=== PATIENT | male | born 1975 | race Caucasian/White ===

== ENCOUNTER 2022-01-11 09:10 | Outpatient (CLI) | payer BC, SELFPAY ==
--- NOTE | ~2022-01-11 | NM_ITS ---
EXAMINATION: NM mark stress w perfusion DATE: 01/11/2022 11:09 INDICATION: Lumbago with sciatica TECHNIQUE: Rest images were obtained following intravenous administration of 9.44 mCi Tc99m tetrofosm in (Myoview). The patient was infused intravenously with Lexiscan (Regadenoson). Then, 30.0 mCi Tc99m tetrofosmin (Myoview) was administered intravenously, and stress images were obtained in supine posi tion. Additional post stress images were obtained in the prone position. Data was reconstructed into short axis and horizontal and vertical long axis SPECT images. Gated SPECT images were also obtained. COMPARISON: None. FINDINGS: Small mild perfusion defect at the apical segment on the gated stress images, slightly larg e extending into the anteroapical and apical lateral segments on the nongated stress images and more prominent and slightly more extensive occluding extending to the mid anterior segments on the rest im ages. There is also significant worsening in this region on the prone imaging. Although could not exc lude a small mild infarct at the apical segment, the more severe and extensive decreased perfusion on rest and post stress imaging suggests this more likely artifactual. No reversible ischemia. There is normal left ventricular chamber size, wall motion and ejection fraction. Left ventricular ejection fraction measures 65%. IMPRESSION: 1. Small mild perfusion defect at the apex on the gated stress images and could not absolutely exclud e infarct however this is more likely artifactual given the more prominent and extensive decreased pe rfusion surrounding the apical segments seen on the rest but not the stress images.. 2. Left ventricular ejection fraction measuring 65%. Reviewed, dictated and finalized at location A. IMPRESSION: 1. Small mild perfusion defect at the apex on the gated stress images and could not absolutely exclude infarct however this is more likely artifactual given t he more prominent and extensive decreased perfusion surrounding the apical segm ents seen on the rest but not the stress images.. 2. Left ventricular ejection fraction measuring 65%.
--- NOTE | 2022-01-11 09:21 | EST_ITS ---
Patient Info Name: Josesito Mason Age: 46 years : 1975 Gender: Male Ht: 78 in Wt: 310 lbs BSA: 2.82 m2 HR: 78 bpm BP: 135 / 81 mmHg Heart Rhythm: Sinus Rhythm Exam Date: 01/11/2022 10:07 AM Exam Location: [facility] Stress Patient Status: Outpatient Admit Date: 01/11/2022 Staff Ordering Physician: Emilio Pappas PA-C Automotive Accessory Installer: Lindsey Escoto CT Attending Provider: Emilio Pappas PA-C Exercise Technologist: Lindsey Escoto CT Exercise Physician: Josep Bull DO Exam Type: CA stress mark w NM Study Info Indications Z82.49 - Family history of ischemic heart disease and other diseases of the circulatory system A regadenoson stress test was performed. Summary 1. 1. Negative lexiscan stress test for ischemic ST changes by ECG criteria. 2. 2. Stable hemodynamics throughout the test. 3. 3. Nuclear scan to follow and will be reported separately. Please correlate with it. 4. 4. Patient informed of the above results. Protocol: Lexiscan Stress ECG Details Stage: REST Duration (min): 1 min : 21 sec Hernandez: --- Speed (mph): 0.0 Grade (%): 0 HR (bpm): 67 SBP (mmHg): 135 DBP (mmHg): 81 METS: --- Stage: REST Duration (min): 15 min : 30 sec Hernandez: --- Speed (mph): 0.0 Grade (%): 0 HR (bpm): 66 SBP (mmHg): 135 DBP (mmHg): 81 METS: --- Stage: STAGE 1 Duration (min): 1 min : 0 sec Hernandez: --- Speed (mph): 0.0 Grade (%): 0 HR (bpm): 87 SBP (mmHg): 115 DBP (mmHg): 63 METS: --- Stage: RECOVERY Duration (min): 1 min : 0 sec Hernandez: --- Speed (mph): 0.0 Grade (%): 0 HR (bpm): 86 SBP (mmHg): 115 DBP (mmHg): 63 METS: --- Stage: RECOVERY Duration (min): 2 min : 0 sec Hernandez: --- Speed (mph): 0.0 Grade (%): 0 HR (bpm): 83 SBP (mmHg): 115 DBP (mmHg): 63 METS: --- Stage: RECOVERY Duration (min): 2 min : 53 sec Hernanedz: --- Speed (mph): 0.0 Grade (%): 0 HR (bpm): 82 SBP (mmHg): 149 DBP (mmHg): 66 METS: --- Rest HR: 66 bpm Peak HR: 92 bpm Rest Sys BP: 135 mmHg Peak Sys BP: 149 mmHg Max Pred HR: 174 bpm % Max Pred HR: 53 % Target HR: 148 bpm Max RPP: 13,708 bpm*mmHg Jordan Score: -2 Termination Reason: Completed protocol Cardiac Symptoms: Shortness of breath Max ST Seg Deviation: 1 mm Total Time: 1 min : 0 sec Rest Maya BP: 81 mmHg Peak Maya BP: 66 mmHg Angina Score: None Total Dose: 0.4 mg Total METS: 1.0 Resting ECG Sinus rhythm, IRBBB, LAFB. Stress ECG No ST changes. Arrhythmias None. Report Signatures
== END 2022-01-11 09:11 | disposition home or self-care (01) ==
PROVIDERS: PCP Physician Assistant; Visit Provider Physician Assistant
DX: M54.42 Lumbago with sciatica, left side (principal)
CPT/HCPCS: 78452; 93017; A9502; J2785

== ENCOUNTER 2022-02-27 09:13 | Outpatient (CLI) | payer BC, SELFPAY ==
--- NOTE | ~2022-02-27 | XR_ITS ---
XR knee RT min 4V 02/27/2022 09:47 Indication: Right knee pain Procedure: 4 views right knee Comparison: No prior studies for comparison. Findings: There is mild osteoarthritis of the right knee. No fracture, subluxation or dislocation. No significant joint effusion. Impression: 1: Mild osteoarthritis right knee. Reviewed, dictated and finalized at location B. Impression: 1: Mild osteoarthritis right knee.
== END 2022-02-27 09:14 | disposition home or self-care (01) ==
LOC: CHSIMG 09:16
PROVIDERS: PCP Physician Assistant; Visit Provider Orthopaedic Surgery
DX: M25.561 Pain in right knee (principal)
CPT/HCPCS: 73564

== ENCOUNTER → 2022-03-10 11:12 | Outpatient (CLI) | payer BC, SELFPAY ==
--- NOTE | ~2022-03-10 | MR_ITS ---
EXAMINATION: MR knee RT wo con DATE: 03/10/2022 12:14 INDICATION: Chronic medial right knee pain TECHNIQUE: Magnetic resonance imaging (MRI) of the right knee was performed without intravenous contr ast. Sequences included coronal PD-weighted FSE, coronal PD-weighted FS FSE, sagittal T2-weighted FS E, sagittal PD-weighted FS FSE and axial PD weighted fat saturated FSE. COMPARISON: Chest dated 02/27/2022 FINDINGS: Medial compartment: Medial meniscus is normal. Deep chondral ulceration with chondral surface regularity and greater than 50% loss of thickness at the central weightbearing medial femoral condyle. Mild partial-thickness ch ondral fissuring along the more anterior weightbearing medial femoral condyle. Normal cartilage along the medial tibial plateau. Lateral compartment: Lateral meniscus is normal. Mild partial-thickness cartilage loss with some chondral surface irregula rity along the anterior weightbearing lateral femoral condyle. Additional mild partial-thickness kim dral fissuring along the posterior margin of the lateral tibial plateau. Patellofemoral compartment: Partial-thickness chondral fissuring without degenerative subchondral changes at the medial and later al patellar facets as well as intervening apical ridge. Small central subchondral osteophytes at the site of deep chondral ulceration at the cephalad aspect of the trochlear groove and medial trochlea. Additional deep chondral ulceration without degenerative subchondral changes at the cephalad half of the lateral trochlea. Ligaments and tendons: Anterior and posterior cruciate ligaments are normal. The medial collateral ligament and fibular breana ateral ligament complex are normal. The extensor mechanism is normal. The visualized medial and later al hamstring tendons as well as the iliotibial band are normal. Fluid: Very small right knee joint effusion at the lateral gutter of the suprapatellar pouch. No loose osteo chondral bodies identified. Small to moderate-sized Lopez's cyst measuring 6.4 similar craniocaudally and approximately 2.0 x 0.8 cm in maximal orthogonal dimensions. Osseous/other: Small bone island at the posterior aspect of the lateral tibial plateau. Bone marrow signal is normal . No fracture or pathologic marrow replacing process. IMPRESSION: 1. 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 2. Small to moderate-sized Lopez's cyst. Reviewed, dictated and finalized at location A. IMPRESSION: 1. Mild tricompartmental osteoarthritis with high-grade chondromalacia in the p atellofemoral compartment, moderate to high-grade chondromalacia in the medial compartment and minimal osteoarthritis with small amount of moderate grade kim dromalacia at the lateral compartment. 2. Small to moderate-sized Lopez's cyst.
== END ==
PROVIDERS: PCP Physician Assistant; Visit Provider Orthopaedic Surgery
DX: M71.21 Synovial cyst of popliteal space [Baker], right knee (principal); M17.11 Unilateral primary osteoarthritis, right knee
CPT/HCPCS: 73721

== ENCOUNTER 2022-08-31 00:28 | Day surgery (SDC) | payer BC, SELFPAY ==
[2022-08-16 09:00] VITALS: BMI 35.9
[2022-08-31 08:48] VITALS: BP 151/83; PULSE 76; RESP 18; TEMP 36.2; O2SAT 98
[2022-08-31] MEDS: LACTATED RINGERS 1,000 ML 150 ML IV CONT (08:59)
--- NOTE | 2022-08-31 09:09 | PM.HPGS ---
History of Present Illness History of Present Illness Consent: Risks, benefits, and alternatives have been discussed and questions answered. Patient agrees to proceed with procedure. Chief complaint: neoplasm screening Narrative: Josesito Mason is a 47 year old male here for first screening colonoscopy Review of Systems Constitutional: Constitutional: Denies headache(s) and Denies weakness Eyes: Eyes: Denies blurry vision ENT: Reports Normal hearing present, Denies headache(s) and Denies neck pain Cardiovascular: Cardiovascular: Denies chest pain and Denies dyspnea Respiratory: Respiratory: Denies dyspnea Gastrointestinal: Gastrointestinal: Reports no additional gastrointestinal complaints Genitourinary: Genitourinary: Denies dysuria Musculoskeletal: Musculoskeletal: Denies neck pain Integumentary/Breasts: Skin/Breast: Denies dry skin Neurologic: Reports Normal hearing present, Denies headache(s) and Denies weakness Psychiatric: Psychiatric: Denies anxiety Endocrine: Endocrine: Denies change in body appearance Hematologic/Lymphatic: Hematologic/Lymphatic: Denies easy bleeding Allergic/Immunologic: Allergic/Immunologic: Denies urticaria [facility] Past Medical History Medical History (Updated 08/31/22 @ 09:10 by Brian Beverly MD) Colon cancer screening Family History Family History Mother Patient's mother is in good health Father Patient's father is in good health Family history of cardiovascular disease Sibling Patient's sister is in good health Family history of cardiovascular disease Other Heart disease Social History Social History Smoking status: Never smoker Second hand tobacco smoke exposure: No Alcohol intake: current Drinks per week: 1 Substance use: unknown Substance use type: does not use Lack of Transportation: No Lack of Food: Never True Current Housing: I Have Housing Concerned About Future Housing: No Difficulty Paying Gas/Electric Bills: No Difficulty Paying for Meds: No Currently Unemployed: No Education: Bachelor's Degree Difficulty w/ Childcare or Family Care: No Living arrangements: with family Spiritual care concerns: No Meds Home Medications and Allergies Home Medications Medication Instructions Recorded Confirmed Type multivitamin 1 tablet PO DAILY 02/27/22 08/16/22 History ascorbic acid (vitamin C) 500 mg 500 mg PO DAILY 08/16/22 08/16/22 History tablet Allergies Allergy/AdvReac Type Severity Reaction Status Date / Time No Known Allergies Allergy Verified 08/31/22 08:47 Vital Signs Vital Signs - 24 hr 08/31/22 08:48 Temperature 97.1 F L Pulse Rate 76 Respiratory Rate 18 Blood Pressure 151/83 H Pulse Oximetry 98 Oxygen Delivery Room Air Exam Const: General: comfortable and no acute distress HENMT: Face/Nose/Sinus: Normal nares present Eyes: General: appearance normal, both eyes and all related structures Neck: Neck: no JVD Resp: Auscultation: clear to auscultation bilaterally Cardio: Rate: regular rate Rhythm: regular rhythm GI: Inspection: non-distended GI Palp: Yes Soft to palpation Skin: General skin exam: normal color Neuro: General: gait normal Speech: normal speech Extrem: General: normal to inspection Psych: Mental Status: mental status grossly normal Assessment and Plan Assessment and plan (1) Colon cancer screening: Code(s): Z12.11 - Encounter for screening for malignant neoplasm of colon Status: Acute Assessment and Plan: colonoscopy
--- NOTE | 2022-08-31 09:12 | WPDANESEPPF ---
Anes - Initial Pre Proc Eval Procedure: Operation Date: 08/31/22 10:00 Proposed Procedures p Screening Colonoscopy - Brian Beverly MD Date/Time: 08/31/22 09:12 Surgeon: Brian Beverly MD Pre Op Diagnosis: neoplasm screening Patient Data Age: 47 Gender: M Height: 1.98 m Weight: 143.2 kg Last Vital Signs Temp 36.2 C L 08/31/22 08:48 Pulse 76 08/31/22 08:48 Resp 18 08/31/22 08:48 BP 151/83 H 08/31/22 08:48 Pulse Ox 98 08/31/22 08:48 O2 Del Method Room Air 08/31/22 08:48 Allergies Allergy/AdvReac Type Severity Reaction Status Date / Time No Known Allergies Allergy Verified 08/31/22 08:47 Home Medications Medication Instructions Recorded Confirmed Type multivitamin 1 tablet PO DAILY 02/27/22 08/16/22 History ascorbic acid (vitamin C) 500 mg 500 mg PO DAILY 08/16/22 08/16/22 History tablet Patient hx anesthesia problems: none Family hx anesthesia problems: none Results Review: All pre-operative results and documents have been reviewed as part of the pre-operative evaluation. [facility] Past Medical History Medical History (Updated 08/31/22 @ 09:13 by Cornel Dillon MD) Colon cancer screening Obesity Family History Family History Mother Patient's mother is in good health Father Patient's father is in good health Family history of cardiovascular disease Sibling Patient's sister is in good health Family history of cardiovascular disease Other Heart disease Social History Social History Smoking status: Never smoker Second hand tobacco smoke exposure: No Alcohol intake: current Drinks per week: 1 Substance use: unknown Substance use type: does not use Lack of Transportation: No Lack of Food: Never True Current Housing: I Have Housing Concerned About Future Housing: No Difficulty Paying Gas/Electric Bills: No Difficulty Paying for Meds: No Currently Unemployed: No Education: Bachelor's Degree Difficulty w/ Childcare or Family Care: No Living arrangements: with family Spiritual care concerns: No Anes - Eval Final PreProcedure Day of Procedure 08/31/22 09:12 Patient weight: obese Heart: regular rate and rhythm Lungs: clear to auscultation Airway: Mallampati scale class II Last oral intake: >/= 8 hours ASA classification: II Emergent: no Anesthetic plan: proceed Anesthesia type and monitoring: general GIVS and standard monitoring Results Review: All pre-operative results and documents have been reviewed as part of the pre-operative evaluation. Informed Consent: The patient's anesthetic plan and its attendant risks and benefits were discussed with the patient/family/POA. Questions were solicited and answers provided to the satisfaction of the patient/family/POA.
[2022-08-31 09:30] VITALS: BP 93/58; PULSE 83; RESP 19; O2SAT 97
[2022-08-31 09:40] VITALS: BP 111/73; PULSE 87; RESP 20; O2SAT 96
[2022-08-31 09:50] VITALS: BP 115/81; PULSE 75; RESP 20; O2SAT 97
== END 2022-08-31 10:03 | disposition home or self-care (01) ==
PROVIDERS: PCP Physician Assistant; Visit Provider Internal Medicine Gastroenterology
PROC: 0DJD8ZZ Inspection of Lower Intestinal Tract, Via Natural or Artificial Opening Endoscopic (ICD-10-PCS; CPT 45378; principal; 2022-08-31 10:00)
DX: Z12.11 Encounter for screening for malignant neoplasm of colon (principal); K57.30 Diverticulosis of large intestine without perforation or abscess without bleeding; E66.9 Obesity, unspecified; Z68.36 Body mass index [BMI] 36.0-36.9, adult
CPT/HCPCS: 45378; J2704; J7120

== ENCOUNTER → 2023-08-23 10:43 | Outpatient (CLI) | payer BC, SELFPAY ==
--- NOTE | ~2023-08-23 | CT_ITS ---
Non-contrast CT scan of the Abdomen and Pelvis Clinical indication: Abdominal pain Technique: 2.5 mm axial scans were obtained through the abdomen and pelvis without intravenous or or al contrast. Dose reduction technique was used on this scan by utilizing automated exposure control a nd iterative reconstruction technique. The dose-length product (DLP) was 1366.50 mGy-cm. Findings: Images through the lung bases reveal no abnormalities. There is no evidence of renal or ureteral calculi. The kidneys and the ureters are nondilated. There is diffuse fatty infiltration of the liver. The spleen, pancreas, gallbladder, and adrenals wilfred ear normal. There is no aortic aneurysm. There is no evidence of bowel obstruction. Normal appendix. Images through the pelvis were performed. There is no evidence of ascites or lymphadenopathy. Urinary bladder unremarkable. No pelvic mass seen. There are small bilateral fat-containing inguinal hernias . Impression: Diffuse fatty infiltration of liver. Small bilateral fat-containing inguinal hernias. Reviewed, dictated and finalized at [facility]. [employer] Impression: Diffuse fatty infiltration of liver. Small bilateral fat-containing inguinal hernias.
== END ==
PROVIDERS: PCP Physician Assistant; Visit Provider Physician Assistant
DX: K76.0 Fatty (change of) liver, not elsewhere classified (principal); K40.20 Bilateral inguinal hernia, without obstruction or gangrene, not specified as recurrent
CPT/HCPCS: 74176

== ENCOUNTER 2023-09-24 11:13 | Outpatient (CLI) | payer BC, SELFPAY ==
[2023-09-24 13:16] LABS: Appearance Urine Clear (Clear); Bilirubin Urine Negative (Negative); Blood Urine Trace-Intact (Negative); Color Urine Light Yellow (Yellow); Glucose Urine UA 1+ (Negative); Ketones Urine Negative (Negative); Leukocyte Esterase Ur Negative LEU/UL (Negative); Nitrate Urine Negative (Negative); Protein Urine Negative (Negative); Specific Grav Ur 1.015 (1.010-1.020); Urobilinogen Urine 0.2 mg/dL (0.2-1.0)
[2023-09-24 13:29] LABS: Add Urine Microscopic? YES; Bacteria Urine Trace /hpf; Mucus Urine Few /lpf; RBC Urine 0-2 /hpf (0-2); WBC Urine None seen /hpf (0-3)
== END 2023-09-24 11:14 | disposition home or self-care (01) ==
LOC: CHSLAB 11:15
PROVIDERS: PCP Physician Assistant; Visit Provider Internal Medicine
DX: R30.0 Dysuria (principal)
CPT/HCPCS: 81001